=== PATIENT | female | born 1955 ===

== ENCOUNTER 2023-10-28 05:30 | Day surgery (SDC) | payer OTHER ==
[~2023-10-28] VITALS: Ht 152.4 cm; Wt 68.0 kg
[2023-10-28] MEDS ORDERED: POVIDONE-IODINE 118 ML BOTT TOP ONE (12:10)
== END 2023-10-28 16:25 | disposition home or self-care (01) ==
LOC: CIR.AMB 05:30
PROVIDERS: ATTEND Obstetrics & Gynecology
DX: N89.1 Moderate vaginal dysplasia (principal)